=== PATIENT | female | born 1975 | race Caucasian/White ===

== ENCOUNTER → 2024-05-09 18:21 | Outpatient (REF) | payer OTHER, SELFPAY | LOC: WDC 18:21 | PROVIDERS: ATTENDING PHYSICIAN Nurse Practitioner Adult Health | DX: Z12.31 Encounter for screening mammogram for malignant neoplasm of breast (principal) | CPT/HCPCS: 77063; 77067 ==

== ENCOUNTER → 2024-12-27 10:42 | Outpatient (REF) | payer OTHER, SELFPAY | LOC: RAD 10:42 | PROVIDERS: ATTENDING PHYSICIAN Nurse Practitioner Adult Health | DX: R10.32 Left lower quadrant pain (principal) | CPT/HCPCS: 74177; Q9967 ==

== ENCOUNTER 2024-12-27 15:02 | Emergency (ER) | payer OTHER, SELFPAY ==
[2024-12-27 15:06] VITALS: BP 143/86
[2024-12-27 15:35] LABS: % Basophils 0.5 % (0-2); % Eosinophils 1.9 % (0-6); % Immature Granulocytes 0.5 % (0-0.5); % Lymphocytes 29.2 % (20.5-51.1); % Monocytes 6.1 % (1.7-9.3); % Neutrophils 61.8 % (42.2-75.2); Absolute Eosinophils 0.2 10^3/uL (0-0.7); Absolute Lymphocytes 2.4 10^3/uL (1.2-3.4); Absolute Monocytes 0.5 10^3/uL (0.1-0.6); Absolute Neutrophils 5.1 10^3/uL (1.4-6.5); Hemoglobin 12.2 g/dL (12.0-16.0); Mean Corp Hgb Conc. 33.9 g/dL (33.0-37.0); Mean Corpuscular Volume 88.5 fL (81.0-99.0); Mean Platelet Volume 10.4 fL (7.4-10.4); Nucleated Red Blood Cells % 0 %; Platelet Count 241 10^3/uL (130-400); Red Blood Cell Count 4.07 10^6/uL (4.20-5.40); Red Cell Dist. Width 12.3 % (11.5-14.5); White Blood Cell Count 8.3 10^3/uL (4.8-10.8)
[2024-12-27 15:38] LABS: INR 1.03; PT 13.8 Sec (11.4-14.6)
[2024-12-27 15:39] LABS: APTT 27.4 Sec (23.4-35.0)
[2024-12-27 15:54] LABS: ALT (SGPT) 13 U/L (0-35); AST (SGOT) 22 U/L (14-36); Albumin 4.4 g/dl (3.5-5.0); Alkaline Phosphatase 51 U/L (38-126); Blood Urea Nitrogen 18 mg/dl (7-17); Calcium 9.4 mg/dl (8.4-10.2); Carbon Dioxide 22 mmol/L (22-30); Chloride 108 mmol/L (98-107); Glucose 93 mg/dl (70-99); Sodium 139 mmol/L (135-145); Total Bilirubin 0.7 mg/dl (0.2-1.3); Total Protein 6.8 g/dl (6.3-8.2); eGFR > 60.00
[2024-12-27 15:56] LABS: HCG, Serum Qualitative Screen Negative
[2024-12-27 16:14] VITALS: BMI 24.6
--- NOTE | 2024-12-27 17:01 | ED.GENMED ---
History of Present Illness
<Agustin Singh PA-C - Last Filed: 12/28/24 09:46>
General
Chief Complaint: Abnormal Lab Value
Source: patient
Time Seen by Provider: 12/27/24 16:00
History of Present Illness
History of Present Illness:
49-year-old female with past medical history of hypertension presents to the ER from outpatient CT scan after she had a CAT scan of her abdomen and pelvis which showed suspected blood products within the pelvis, patient noting that on Monday
evening during yoga she had a sudden onset of pain followed by an episode of nonbloody nonbilious emesis but continued pain since that time and a sensation of needing to have a bowel movement but states she has not had much stool despite taking
[id number] Dulcolax. Patient's primary care provider was reportedly concerned after hearing an abdominal bruit on exam and was concern for possible abdominal aorta which is why she sent the patient to the ER for further evaluation. Patient
denies any fevers, chills, rigors, urinary symptoms, chest pain or shortness of breath. Social history was unremarkable for cigarettes or tobacco. Family history is noted for patient's sister having a history of aneurysm in the past.
Past History
<Agustin Singh PA-C - Last Filed: 12/28/24 09:46>
Past History
ED Past Medical History: HTN
ED Past Surgical History: Other (Abdominoplasty)
Social History
Tobacco: Non-smoker
Alcohol: Occasional
Drug: None
Personal:
Living: with family
Review of Systems
<Agustin Singh PA-C - Last Filed: 12/28/24 09:46>
Review of Systems
All Other Systems: ROS reviewed and negative except as documented in HPI and ROS
Phy Exam
<Agustin Singh PA-C - Last Filed: 12/28/24 09:46>
Physical Exam
Physical Exam:
GENERAL: Alert , in no apparent distress
EYE: clear conjunctiva b/l
HEAD: NCAT
ENT: o/p clr, mmm.
ABDOMEN: Soft, nondistended, normoactive bowel sounds, I do not appreciate or auscultate in abdominal bruit generally tender from the umbilicus distal, no r/g, no cvat
NEUROLOGICAL: Alert and oriented
SKIN: Warm and dry, skin intact.
MUSCULOSKELETAL: No edema, well perfused.
PSYCH: Normal and appropriate interaction.
Scores
<Agustin Singh PA-C - Last Filed: 12/28/24 09:46>
Heart Failure Risk
Heart Failure Risk Score: Not Applicable
Heart Score for Chest Pain Patients
STEMI patient?: Not applicable
Withdrawal Assessment of Alcohol
Withdrawal Assessment Completed?: Not applicable
Course
<Agustin Singh PA-C - Last Filed: 12/28/24 09:46>
Orders/Labs/Results
Orders:
Orders
12/27/24 15:09
Test Result ONCE
12/27/24 15:15
Type+Screen Urgent
Complete Blood Count/With Diff Urgent
Comprehensive Metabolic Panel Urgent
HCG, Serum Qualitative Screen Urgent
PT/INR [Prothrombin Time] Urgent
Is patient on Coumadin/Warfarin?: No
Comment: [email or web address]
PTT Urgent
12/27/24 16:40
US Pelvis W Transvag Combined Urgent
Reason For Exam: lower abd pain, possible hemorrhagic cyst
Abnormal Lab Results
12/27/24
15:15
RBC 4.07 L 10^6/uL
(4.20-5.40)
Hct 36.0 L %
(37.0-47.0)
Chloride 108 H mmol/L
(98-107)
BUN 18 H mg/dl
(7-17)
12/27/24 15:15
12/27/24 15:15
Vital Signs
Initial and Last Documented VS:
Initial Vital Signs
Temp Pulse Resp BP Pulse Ox
98.8 F 72 16 143/86 98
12/27/24 15:06 12/27/24 15:06 12/27/24 15:06 12/27/24 15:06 12/27/24 15:06
Last Documented Vital Signs
Temp Pulse Resp BP Pulse Ox
98.8 F 70 18 152/90 100
12/27/24 15:06 12/27/24 19:45 12/27/24 19:45 12/27/24 19:45 12/27/24 19:45
<Kaleb Dorman, DO - Last Filed: 12/27/24 19:54>
Orders/Labs/Results
Orders:
Orders
12/27/24 15:09
Test Result ONCE
12/27/24 15:15
Type+Screen Urgent
Complete Blood Count/With Diff Urgent
Comprehensive Metabolic Panel Urgent
HCG, Serum Qualitative Screen Urgent
PT/INR [Prothrombin Time] Urgent
Is patient on Coumadin/Warfarin?: No
Comment: [email or web address]
PTT Urgent
12/27/24 16:40
US Pelvis W Transvag Combined Urgent
Reason For Exam: lower abd pain, possible hemorrhagic cyst
Abnormal Lab Results
12/27/24
15:15
RBC 4.07 L 10^6/uL
(4.20-5.40)
Hct 36.0 L %
(37.0-47.0)
Chloride 108 H mmol/L
(98-107)
BUN 18 H mg/dl
(717)
12/27/24 15:15
12/27/24 15:15
Vital Signs
Initial and Last Documented VS:
Initial Vital Signs
Temp Pulse Resp BP Pulse Ox
98.8 F 72 16 143/86 98
12/27/24 15:06 12/27/24 15:06 12/27/24 15:06 12/27/24 15:06 12/27/24 15:06
Last Documented Vital Signs
Temp Pulse Resp BP Pulse Ox
98.8 F 70 18 152/90 100
12/27/24 15:06 12/27/24 19:45 12/27/24 19:45 12/27/24 19:45 12/27/24 19:45
<Agustin Singh PA-C - Last Filed: 12/28/24 09:46>
MDM/Problems Addressed
Differential Diagnosis Includes:
Hemorrhagic cyst, anemia, constipation, based off CT scan done earlier I do not have concern for appendicitis, ruptured aneurysm or dissection, I do not have concern for colitis or diverticulitis
MDM/Problems Addressed:
49-year-old female presenting to the ER at the request of primary care provider for evaluation of CT scan that was done earlier today showing blood products within the pelvis thought to be related to hemorrhagic cyst. There was also a 2 cm long
segment of narrowing within the mid transverse colon. Possibly related to postinflammatory changes or neoplasm. Radiology recommended close follow-up colonoscopy. Patient's main concern is for possibility of aortic aneurysm however the CT scan
definitively shows no evidence for aneurysm. Overall I have minimal suspicion for any emergent pathologies. Patient is hemodynamically stable, hemoglobin of greater than 12 and is in no acute distress. She does have tenderness on the abdominal
exam which I suspect is likely from the blood within the pelvis that radiology feels is likely due to hemorrhagic ovarian cyst. Will obtain an ultrasound to further evaluate. This ultimately does not explain patient's GI symptoms that she is
experiencing. I did offer to perform bedside digital rectal exam for possibility of stool/fecal impaction however patient declines. Will consider other OTC measures for symptomatic relief but overall I have no reason to suggest acute emergent
pathology otherwise.
<Agustin Singh PA-C - Last Filed: 12/28/24 09:46>
*Pulse Oximetry
Patient hypoxic: no
*Critical Care Note
Total Time (30-74mins, 75-104mins- exclusive of procedures): Not Applicable
ED Attending Note
<Agustin Singh PA-C - Last Filed: 12/28/24 09:46>
-
Portions of this chart may have been created with voice recognition software.� Occasional wrong word or��sound alike� substitutions may have occurred due to the inherent limitations of voice recognition software.
<Kaleb Dorman DO - Last Filed: 12/27/24 19:54>
ED Attending Note
Patient seen and examined by attending physician: Yes
I performed the substantive portion of visit, reviewed & personally made and approve the management plan that is documented in note by myself or RUBÉN.: Yes
ED Attending Note:
I have seen and evaluated the patient with a [id number] encounter. I have spoken to the advance practicer provider and involved in the medical history, the physical exam, medical decision making.
Evaluation and management service: agree unless noted differently below.
Results interpretation: agree unless noted differently below.
Focused HPI: 49-year-old female presenting the emergency department for abdominal pain. She had outpatient CT showing blood in her pelvis. It was suggested that she repeat her CT in a few weeks if symptoms persist
Physical exam: Mild left lower quadrant pain. Otherwise nontoxic-appearing
Medical Decision Making: Ultrasound was performed and it raises suspicion for left ovarian cyst. We discussed likely hemorrhagic cyst and return precautions
Discharge Plan
Departure
Patient Disposition: Home (Routine Discharge)
Date of Disposition: 12/27/24
Time of Disposition: 19:53
Patient with high blood pressure during this ER visit?: Yes
Discharge Problem:
Hemorrhagic cyst of left ovary
Instructions: BLOOD PRESSURE
Referrals:
Claudia Landis CRNP [Family Provider] -
Activity Restrictions/Additional Instructions:
Please return for any worsening symptoms.
You may return at any time if you have further concerns.
Please follow up with your doctor at the first available appointment, preferably this week.
Thank you for choosing [facility].
Interventions
Interventions:
*Risk Screen - Suicide Last Done: 12/27/24 15:10
*General Assessment Last Done: 12/27/24 16:14
*Neglect/Abuse Screening Last Done: 12/27/24 15:10
*ED- Fall Risk Assessment Last Done: 12/27/24 16:14
*ED COVID-19 Vaccine History Last Done: 12/27/24 16:14
*Nursing Disposition Last Done: 12/27/24 19:50
Discharge Date and Time
Discharge Date/Time: 12/27/24 19:50
Print Language: WELSH
[2024-12-27 19:45] VITALS: BP 152/90
== END 2024-12-27 19:50 | disposition home or self-care (01) ==
LOC: EMR 15:02
PROVIDERS: EMERGENCY PHYSICIAN Student in an Organized Health Care Education/Training Program; FAMILY PHYSICIAN Nurse Practitioner Adult Health
DX: N83.202 Unspecified ovarian cyst, left side (principal); I10 Essential (primary) hypertension
CPT/HCPCS: 99284; 76830; 76856; 80053; 84703; 85025; 85610; 85730; 86850; 86900; 86901

== ENCOUNTER → 2025-08-15 11:38 | Outpatient (REF) | payer OTHER, SELFPAY | LOC: WDC 11:38 | PROVIDERS: ATTENDING PHYSICIAN Nurse Practitioner Adult Health | DX: Z12.31 Encounter for screening mammogram for malignant neoplasm of breast (principal) | CPT/HCPCS: 77063; 77067 ==